=== PATIENT | female | born 1940 | race Hispanic/Latino ===

== ENCOUNTER → 2019-05-25 | Outpatient (CLI) | payer MEDICARE | END | disposition home or self-care (01) | LOC: OIH 12:33 | PROVIDERS: ATTEND Internal Medicine | DX: M19.071 Primary osteoarthritis, right ankle and foot (principal); M19.072 Primary osteoarthritis, left ankle and foot; M77.31 Calcaneal spur, right foot; M79.89 Other specified soft tissue disorders; M06.4 Inflammatory polyarthropathy | CPT/HCPCS: 73120; 73620 ==